=== PATIENT | female | born 1975 | race Caucasian/White ===

== ENCOUNTER 2016-05-18 05:08 | Inpatient (IN) | payer BC ==
[~2016-05-18] VITALS: Ht 172.7 cm; Wt 125.0 kg
[~2016-05-18 05:08] MED LIST: HYDROCHLOROTHIA25 MG; TYLENOL REGULA325 MG PO; WELLBUTRIN XL300 MG PO
[2016-05-18 05:49] VITALS: BP 133/93
[2016-05-18 06:35] LABS: POINT-OF-CARE METER ID UU14174212; POINT-OF-CARE USER ID AHSRSCSLC11
[2016-05-18 11:00] VITALS: BP 164/78
[2016-05-18 14:50] VITALS: BP 162/68
[2016-05-18 19:52] VITALS: BP 132/61
[2016-05-18 23:35] VITALS: BP 139/72
[2016-05-19 03:33] VITALS: BP 146/71
[2016-05-19 06:57] LABS: HEMATOCRIT 41.6 % (36.0-46.0); MCH 27.8 PG (29.0-34.0); MCHC 32.9 G/DL (30.0-36.0); MCV 84.4 FL (83-99); MEAN PLAT.VOLUME 11.1 uM^3 (9.5-12.4); PLATELET COUNT 274 K/uL (156-360); RBC DIS.WIDTH-CV 13.5 % (11.8-14.6); RBC DIS.WIDTH-SD 40.8 % (39-53); RED BLOOD COUNT 4.93 M/uL (3.80-5.20); WHITE BLOOD COUNT 13.6 K/uL (4.1-10.2)
[2016-05-19 07:20] LABS: ANION GAP 11 MEQ/L (2-14); CHLORIDE 104 MEQ/L (99-109); GFR ESTIMATE (CALCULATED) > 59 mL/min/; GLUCOSE 103 mg/dL (70-99); MAGNESIUM 1.9 mg/dl (1.3-2.7); POTASSIUM 3.7 MEQ/L (3.7-5.4); SAMPLE HEMOLYSIS CHECK 0; SAMPLE ICTERIC CHECK 0; SAMPLE LIPEMIA CHECK 0; SODIUM 138 MEQ/L (136-147); UREA NITROGEN (BUN) 11 mg/dL (9-23)
[2016-05-19 07:43] VITALS: BP 140/76
[2016-05-19] MEDS ORDERED: HYDROCODON-ACE1 EAC7 PO (08:28)
[2016-05-19 11:40] VITALS: BP 137/67
== END 2016-05-19 12:38 | disposition home or self-care (01) | DRG 621 ==
LOC: 2SOUTH 05:08 → 2EASTP 10:54 → 2SOUTH 10:57 → 2EASTP 05-19 12:38
PROVIDERS: Surgery
PROC: 0DB64Z3 Excision of Stomach, Percutaneous Endoscopic Approach, Vertical (ICD-10-PCS; principal; 2016-05-18)
DX: E66.01 Morbid (severe) obesity due to excess calories (principal); Z68.41 Body mass index [BMI] 40.0-44.9, adult; F41.9 Anxiety disorder, unspecified; J30.1 Allergic rhinitis due to pollen; E89.0 Postprocedural hypothyroidism
CPT/HCPCS: 80048; 82948; 83735; 84100; 85027; C9113; J0330; J0690; J1100; J1170; J1644; J1650; J1815; J2250; J2405; J2710; J2765; J3010; J3480; J7120; S0020